=== PATIENT | male | born 1985 | race American Indian/Alaskan Native ===

== ENCOUNTER 2018-12-19 22:14 | Emergency (ER) | payer OTHER ==
[2018-12-20] MEDS ORDERED: TYLENOL PO ONE ×2 (01:11→01:27)
[2018-12-20] MEDS ORDERED: TYLENOL ONE (01:14)
[2018-12-20] MEDS ORDERED: NORCO 10/325 PO ONE (01:58)
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
[2018-12-20 04:14] VITALS: BP 128/84
== END 2018-12-20 04:15 | disposition home or self-care (01) ==
LOC: ED 22:14
DX: S02.2XXA Fracture of nasal bones, initial encounter for closed fracture (principal); S39.012A Strain of muscle, fascia and tendon of lower back, initial encounter; S13.4XXA Sprain of ligaments of cervical spine, initial encounter; S00.83XA Contusion of other part of head, initial encounter; F17.200 Nicotine dependence, unspecified, uncomplicated; Z79.899 Other long term (current) drug therapy; V49.59XA Passenger injured in collision with other motor vehicles in traffic accident, initial encounter; Y93.89 Activity, other specified; Y92.410 Unspecified street and highway as the place of occurrence of the external cause; Y99.8 Other external cause status
CPT/HCPCS: 70450; 70486; 72100; 72125

== ENCOUNTER 2019-02-19 12:14 | Emergency (ER) | payer OTHER ==
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
[2019-02-19 12:33] VITALS: BP 162/87
== END 2019-02-19 12:37 | disposition home or self-care (01) ==
LOC: ED 12:14
DX: J02.9 Acute pharyngitis, unspecified (principal); F17.200 Nicotine dependence, unspecified, uncomplicated; Z88.5 Allergy status to narcotic agent; Z79.1 Long term (current) use of non-steroidal anti-inflammatories (NSAID); Z98.890 Other specified postprocedural states
CPT/HCPCS: 99282

== ENCOUNTER 2020-02-12 18:50 | Emergency (ER) | payer SELFPAY ==
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
[2020-02-12] MEDS ORDERED: HYDROcodone/ACETAMINOPHEN 5-325 MG TAB PO ONE (23:59)
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
[2020-02-13 00:05] VITALS: BP 150/93
== END 2020-02-13 01:18 | disposition home or self-care (01) ==
LOC: ED 18:50
DX: S92.912A Unspecified fracture of left toe(s), initial encounter for closed fracture (principal); F17.200 Nicotine dependence, unspecified, uncomplicated; Z79.899 Other long term (current) drug therapy; Z98.890 Other specified postprocedural states; X58.XXXA Exposure to other specified factors, initial encounter; Y93.89 Activity, other specified; Y92.89 Other specified places as the place of occurrence of the external cause; Y99.8 Other external cause status